=== PATIENT | female | born 1955 | race African-American/Black ===

== ENCOUNTER 2024-06-08 12:14 | Outpatient (CLI) | payer BC | END 2024-06-08 12:15 | disposition home or self-care (01) | LOC: CSHRAD 12:14 | PROVIDERS: ATTEND Internal Medicine | DX: M25.572 Pain in left ankle and joints of left foot (principal) ==

== ENCOUNTER 2024-09-14 16:20 | Outpatient (CLI) | payer BC | END 2024-09-14 16:21 | disposition home or self-care (01) | LOC: CSHRAD 16:20 | PROVIDERS: ATTEND Internal Medicine | DX: M79.671 Pain in right foot (principal); M89.8X7 Other specified disorders of bone, ankle and foot ==

== ENCOUNTER 2025-06-07 10:28 | Outpatient (CLI) | payer BC ==
[~2025-06-07 10:28] MED LIST: Iopamidol 370 76% 100 ML VIAL ONE
[2025-06-07 12:21] LABS: Estimated GFR - POC 32.0
== END 2025-06-07 10:29 | disposition home or self-care (01) ==
LOC: CSHRAD 10:28
PROVIDERS: ATTEND Urology
DX: N13.30 Unspecified hydronephrosis (principal)
CPT/HCPCS: 74410; 82565